=== PATIENT | female | born 1990 | race Caucasian/White ===

== ENCOUNTER → 2017-08-13 | Outpatient (CLI) | payer BC ==
[~2017-08-13] MED LIST: ETHI1TAB26 PO
[2017-08-13 08:50] LABS: PLATELET COUNT, AUTOMATED 208 K/uL (150-450)
== END ==
LOC: LAB 07:59
PROVIDERS: ATTEND Nurse Practitioner Family
DX: R19.7 Diarrhea, unspecified (principal); R10.84 Generalized abdominal pain
CPT/HCPCS: 36415; 82040; 82247; 82310; 82374; 82435; 82565; 82784; 82947; 83516; 84075; 84132; 84155; 84295; 84443; 84450; 84460; 84520; 85025; 86140; 87045; 87177; 87324; 87449

== ENCOUNTER → 2018-09-30 | Outpatient (CLI) | payer BC ==
[~2018-09-30] MED LIST changes: +DOXY50SY2 PO; +ETON1VAG7 VG; +LEVO1IUD3 IY; +PROG100C IY; +SPIR100T33 PO; +VALA500T66 PO
--- NOTE | 2018-09-30 17:29 | RADIOLOGY IMAGING REPORT ---
FACILITY: [facility] [place] PATIENT NAME: CHOLO CARO : [id number] MR: [id number] V: [id number] EXAM DATE: [id number] ORDERING PHYSICIAN: OMID JAMES TECHNOLOGIST: Vanessa Cates RT(R)(CT) PROCEDURE:US LEFT BREAST COMPARISON:None. INDICATIONS:Left breast lump FINDINGS: History of fibroadenoma removed 10 years ago. Family history: Grandmother and father positive. Focus Left breast Ultrasound from 11-3 o'clock. Patient's palpable area is between 1-2. At the point of palpable concern there is a ridge of fibroglandular tissue corresponding to the area of palpable concern. No mass lesion or architectural distortion was identified. Incidental note was made what appears to be a small cluster of micro cysts in the Left breast at the 11 o'clock position 3cm deep to the nipple. DIAGNOSTIC CATEGORY 1--NEGATIVE. RECOMMENDATIONS: CLINICAL EVALUATION. IMPRESSION: BIRADS 1: Negative. Dictated by: Levi Culver M.D. on 09/30/2018 at 15:59 Transcribed by: STEFF on 09/30/2018 at 16:08 Approved by: Levi Culver M.D. on 09/30/2018 at 17:28 [facility]
== END ==
LOC: US 00:50
PROVIDERS: ATTEND Obstetrics & Gynecology
DX: N60.02 Solitary cyst of left breast (principal)